=== PATIENT | male | born 1990 | race African-American/Black ===

== ENCOUNTER 2017-05-22 03:57 | Emergency (ER) | payer SELFPAY ==
[~2017-05-22 03:57] MED LIST: ZOFR4TAB3 PO
[2017-05-22 03:59] VITALS: BP 173/95; PULSE 63; RESP 16; TEMP 97.6; O2SAT 98
[2017-05-22 04:13] VITALS: BP 146/92; PULSE 73; RESP 18; O2SAT 99
[2017-05-22] MEDS ORDERED: SODIUM CHLORIDE 0.9% FLUSH 10 ML FLUSH IV FLUSH PRN (04:15)
[2017-05-22] MEDS ORDERED: SODIUM CHLOR 0.9% 1000 ML INJ 1,000 ML IV SCH (04:15)
[2017-05-22] MEDS ORDERED: MORPHINE SULFATE 4 MG/ML INJ IV PUSH ONE ×2 (04:15→05:30)
[2017-05-22] MEDS ORDERED: ONDANSETRON HCL 4 MG/2 ML VIAL IVP ONE (04:15)
[2017-05-22] MEDS ORDERED: KETOROLAC TROMETHAMINE 30 MG/ML (IVP) VIAL IVP ONE (04:15)
[2017-05-22 04:20] VITALS: RESP 16; O2SAT 99
--- NOTE | 2017-05-22 04:22 | PD ---
HPI Chief Complaint: Abdominal Pain Time Seen by Provider: 04:11 Travel History International Travel<30 days: No Contact w/Intl Traveler<30days: No Traveled to known affect area: No History of Present Illness HPI The patient is a 27-year-old Suzie male who presents to the emergency department for abdominal pain. The patient states he was sleeping earlier tonight approximately 2:30 AM when he was awakened by severe abdominal pain. The abdominal pain is located in the upper aspect of his abdomen bilateral, sharp, crampy, nonradiating, and not associated with any nausea, vomiting, or diarrhea. The patient tried to induce vomiting at home to improve his symptoms , however, he was unable to vomit. The patient's last bowel movement was yesterday, normal. The patient states he had surgery to remove kidney stones from both kidneys at age 9 months, but denies any subsequent abdominal surgeries. He denies any known history of nephrolithiasis. He denies any dysuria, frequency, or urgency. He denies any current fever, chills, or sweats. Symptoms are moderate without any alleviating or exacerbating factors. PFSH Past Medical History Cardiovascular Problems: Yes (MURMUR) Past Surgical History Genitourinary Surgery: Yes (kidney surgery age 9 months.) Social History Alcohol Use: Yes (gallon of gin every 2-3 weeks) Tobacco Use: Yes (1/2 ppd) Substance Use: Yes (marijuana) Allergies-Medications (Allergen,Severity, Reaction): Coded Allergies: No Known Allergies (Verified , 05/22/17) Reported Meds & Prescriptions Reported Meds & Active Scripts Active No Active Prescriptions or Reported Medications Review of Systems Except as stated in HPI: all other systems reviewed are Neg General / Constitutional: No: Fever, Chills Cardiovascular: No: Chest Pain or Discomfort Respiratory: No: Shortness of Breath Gastrointestinal: Positive: Abdominal Pain, No: Nausea, Vomiting, Diarrhea Genitourinary: No: Urgency, Frequency, Dysuria, Hematuria Physical Exam Narrative GENERAL: Awake, alert, nontoxic-appearing 27-year-old male who appears his stated age and is in no acute respiratory distress. He does appear mild discomfort. SKIN: Focused skin assessment warm/dry. HEAD: Atraumatic. Normocephalic. EYES: Pupils equal and round. No scleral icterus. No injection or drainage. ENT: No nasal bleeding or discharge. Mucous membranes pink and moist. NECK: Trachea midline. No JVD. CARDIOVASCULAR: Regular rate and rhythm. No murmur appreciated. RESPIRATORY: No accessory muscle use. Clear to auscultation. Breath sounds equal bilaterally. GASTROINTESTINAL: Abdomen soft, well-healed scars in the flanks bilaterally that are slightly diagonal. Tenderness noted in the left and right upper quadrant. Mild guarding but no rigidity. Back: No CVA tenderness. MUSCULOSKELETAL: No obvious deformities. No clubbing. No cyanosis. No edema. NEUROLOGICAL: Awake and alert. No obvious cranial nerve deficits. Motor grossly within normal limits. Normal speech. PSYCHIATRIC: Appropriate mood and affect; insight and judgment normal. Data Data Last Documented VS Vital Signs Date Time Temp Pulse Resp B/P Pulse Ox O2 Delivery O2 Flow Rate FiO2 05/22/17 04:20 16 99 Room Air 05/22/17 04:13 73 146/92 05/22/17 03:59 97.6 Orders Complete Blood Count With Diff (05/22/17 04:15) Comprehensive Metabolic Panel (05/22/17 04:15) Lipase (05/22/17 04:15) Urinalysis - C+S If Indicated (05/22/17 04:15) Ct Abd/Pel W/O Iv Contrast (05/22/17 04:15) Iv Access Insert/Monitor (05/22/17 04:15) Ecg Monitoring (05/22/17 04:15) Oximetry (05/22/17 04:15) Morphine Inj (Morphine Inj) (05/22/17 04:15) Ondansetron Inj (Zofran Inj) (05/22/17 04:15) Sodium Chlor 0.9% 1000 Ml Inj (Ns 1000 M (05/22/17 04:15) Sodium Chloride 0.9% Flush (Ns Flush) (05/22/17 04:15) Ketorolac Inj (Toradol Inj) (05/22/17 04:15) Morphine Inj (Morphine Inj) (05/22/17 05:30) Labs Laboratory Tests Test 05/22/17 05/22/17 04:10 04:25 Urine Color YELLOW Urine Turbidity HAZY Urine pH 6.5 Urine Specific [place] 1.018 Urine Protein NEG mg/dL Urine Glucose (UA) NEG mg/dL Urine Ketones NEG mg/dL Urine Occult Blood NEG Urine Nitrite NEG Urine Bilirubin NEG Urine Urobilinogen LESS THAN 2.0 MG/DL Urine Leukocyte Esterase NEG Urine RBC LESS THAN 1 /hpf Urine WBC 2 /hpf Urine Amorphous Sediment RARE Urine Mucus FEW /lpf Microscopic Urinalysis Comment CULT NOT INDICATED White Blood Count 7.6 TH/MM3 Red Blood Count 5.09 MIL/MM3 Hemoglobin 15.2 GM/DL Hematocrit 44.3 % Mean Corpuscular Volume 87.0 FL Mean Corpuscular Hemoglobin 29.9 PG Mean Corpuscular Hemoglobin 34.3 % Concent Red Cell Distribution Width 13.1 % Platelet Count 263 TH/MM3 Mean Platelet Volume 8.0 FL Neutrophils (%) (Auto) 36.3 % Lymphocytes (%) (Auto) 49.9 % Monocytes (%) (Auto) 10.0 % Eosinophils (%) (Auto) 2.8 % Basophils (%) (Auto) 1.0 % Neutrophils # (Auto) 2.8 TH/MM3 Lymphocytes # (Auto) 3.8 TH/MM3 Monocytes # (Auto) 0.8 TH/MM3 Eosinophils # (Auto) 0.2 TH/MM3 Basophils # (Auto) 0.1 TH/MM3 CBC Comment DIFF FINAL Differential Comment Sodium Level 142 MEQ/L Potassium Level 4.0 MEQ/L Chloride Level 106 MEQ/L Carbon Dioxide Level 29.6 MEQ/L Anion Gap 6 MEQ/L Blood Urea Nitrogen 15 MG/DL Creatinine 1.09 MG/DL Estimat Glomerular Filtration 98 ML/MIN Rate Random Glucose 119 MG/DL Calcium Level 9.2 MG/DL Total Bilirubin 0.1 MG/DL Aspartate Amino Transf 16 U/L (AST/SGOT) Alanine Aminotransferase 39 U/L (ALT/SGPT) Alkaline Phosphatase 80 U/L Total Protein 7.8 GM/DL Albumin 3.6 GM/DL Lipase 206 U/L [facility] Medical Decision Making Medical Screen Exam Complete: Yes Emergency Medical Condition: Yes Medical Record Reviewed: Yes Interpretation(s) CT of the abdomen and pelvis is negative for acute findings. Laboratory Tests Test 05/22/17 05/22/17 04:10 04:25 Urine Color YELLOW Urine Turbidity HAZY Urine pH 6.5 Urine Specific [place] 1.018 Urine Protein NEG mg/dL Urine Glucose (UA) NEG mg/dL Urine Ketones NEG mg/dL Urine Occult Blood NEG Urine Nitrite NEG Urine Bilirubin NEG Urine Urobilinogen LESS THAN 2.0 MG/DL Urine Leukocyte Esterase NEG Urine RBC LESS THAN 1 /hpf Urine WBC 2 /hpf Urine Amorphous Sediment RARE Urine Mucus FEW /lpf Microscopic Urinalysis Comment CULT NOT INDICATED White Blood Count 7.6 TH/MM3 Red Blood Count 5.09 MIL/MM3 Hemoglobin 15.2 GM/DL Hematocrit 44.3 % Mean Corpuscular Volume 87.0 FL Mean Corpuscular Hemoglobin 29.9 PG Mean Corpuscular Hemoglobin 34.3 % Concent Red Cell Distribution Width 13.1 % Platelet Count 263 TH/MM3 Mean Platelet Volume 8.0 FL Neutrophils (%) (Auto) 36.3 % Lymphocytes (%) (Auto) 49.9 % Monocytes (%) (Auto) 10.0 % Eosinophils (%) (Auto) 2.8 % Basophils (%) (Auto) 1.0 % Neutrophils # (Auto) 2.8 TH/MM3 Lymphocytes # (Auto) 3.8 TH/MM3 Monocytes # (Auto) 0.8 TH/MM3 Eosinophils # (Auto) 0.2 TH/MM3 Basophils # (Auto) 0.1 TH/MM3 CBC Comment DIFF FINAL Differential Comment Sodium Level 142 MEQ/L Potassium Level 4.0 MEQ/L Chloride Level 106 MEQ/L Carbon Dioxide Level 29.6 MEQ/L Anion Gap 6 MEQ/L Blood Urea Nitrogen 15 MG/DL Creatinine 1.09 MG/DL Estimat Glomerular Filtration 98 ML/MIN Rate Random Glucose 119 MG/DL Calcium Level 9.2 MG/DL Total Bilirubin 0.1 MG/DL Aspartate Amino Transf 16 U/L (AST/SGOT) Alanine Aminotransferase 39 U/L (ALT/SGPT) Alkaline Phosphatase 80 U/L Total Protein 7.8 GM/DL Albumin 3.6 GM/DL Lipase 206 U/L Last Impressions Abdomen/Pelvis CT 05/22/17 0415 Signed Impressions: Service Date/Time: Monday, May 22, 2017 04:32 - CONCLUSION: Negative CT abdomen/pelvis without intravenous and without oral contrast. Fer Baptiste MD Differential Diagnosis Differential diagnosis includes gastritis, peptic ulcer disease, pancreatitis, partial small bowel obstruction, biliary colic, choledocholithiasis, diverticulitis, nephrolithiasis, hydronephrosis. Narrative Course IV was established, labs are drawn and sent, and the patient was placed on cardiac telemetry monitoring and continuous pulse oximetry monitoring. The patient was administered morphine, Toradol, Zofran, and IV fluids. Noncontrast CT of the abdomen and pelvis was ordered. The patient was reevaluated at 4:50 AM, his pain had significantly improved after pain medications were administered. He continued to be monitored in the emergency department. Laboratory evaluation was unremarkable. White count was within normal limits. LFTs and lipase were normal. Creatinine was within normal limits. CT of the abdomen and pelvis was negative. The patient was reevaluated at 5:20 AM, his pain had started to return, therefore, the patient was redosed with morphine 4 mg intravenously and monitored in the emergency department. Diagnosis Primary Impression: Abdominal pain Qualified Code: R10.10 - Pain of upper abdomen Patient Instructions: General Instructions Additional Instructions: Please provide the patient a copy of his CT results and lab results at discharge. Follow-up with her primary physician. Return if symptoms worsen or progress. Clear liquid diet and advance as tolerated. Med/Other Pt SpecificInfo: Prescription(s) given Scripts Hydrocodone-Acetaminophen ([place])5-325 mg Tab1 Tab PO Q6H PRN (PAIN) #12 TAB Ref 0 Prov:Miah Pickard MD 05/22/17 Ondansetron Odt (Zofran Odt)4 Mg Tab4 Mg SL Q6HR PRN (Nausea/Vomiting) #7 TAB Ref 0 Prov:Miah Pickard MD 05/22/17 Disposition: 01 DISCHARGE HOME Condition: Stable Miah Pickard MD May 22, 2017 04:22
[2017-05-22 04:36] LABS: AUTOMATED NEUTROPHIL # 2.8 TH/MM3 (1.8-7.7); BASOPHIL # 0.1 TH/MM3 (0-0.2); EOSINOPHIL # 0.2 TH/MM3 (0-0.4); EOSINOPHIL % 2.8 % (0.0-4.0); HEMATOCRIT 44.3 % (39.0-51.0); HEMO FLAGS DIFF FINAL; LYMPH % 49.9 % (9.0-44.0); LYMPHOCYTE # 3.8 TH/MM3 (1.0-4.8); MEAN CORPUSCULAR HEMOGLOBIN 29.9 PG (27.0-34.0); MEAN CORPUSCULAR HGB CONC 34.3 % (32.0-36.0); NEUT % 36.3 % (16.0-70.0); PLATELET COUNT 263 TH/MM3 (150-450); RED BLOOD COUNT 5.09 MIL/MM3 (4.50-5.90); RED CELL DISTRIBUTION WIDTH 13.1 % (11.6-17.2); WHITE BLOOD COUNT 7.6 TH/MM3 (4.0-11.0)
[2017-05-22 04:50] LABS: ALT (GPT) 39 U/L (12-78); ANION GAP 6 MEQ/L (5-15); AST (GOT) 16 U/L (15-37); BICARBONATE 29.6 MEQ/L (21.0-32.0); BLOOD UREA NITROGEN 15 MG/DL (7-18); CHLORIDE 106 MEQ/L (98-107); GLOMERULAR FILTRATION RATE 98 ML/MIN (>89); SODIUM (NA) 142 MEQ/L (136-145)
[2017-05-22 04:52] LABS: ALKALINE PHOSPHATASE 80 U/L (45-117); TOTAL BILIRUBIN ADULT 0.1 MG/DL (0.2-1.0)
[2017-05-22 04:53] LABS: BLOOD, URINE NEG (NEG); COMMENT (UR) CULT NOT INDICATED; CULTURE IF INDICATED CULT NOT INDICATED; GLUCOSE,URINE NEG (NEG); KETONE, URINE NEG (NEG); MUCUS URINE FEW /lpf (OCC); NITRITE,URINE NEG (NEG); PH, URINE 6.5 (5.0-8.5); URINE COLOR YELLOW (YELLW/STRAW)
--- NOTE | 2017-05-22 05:24 | RADRPT ---
EXAM DATE/TIME: 05/22/2017 04:32 [facility] COMPARISON: No previous studies available for comparison. INDICATIONS : Left upper quadrant abdominal pain. ORAL CONTRAST: No oral contrast ingested. RADIATION DOSE: 12.22 CTDIvol (mGy) MEDICAL HISTORY : None SURGICAL HISTORY : Kidney surgery at 9 months old. ENCOUNTER: Initial ACUITY: 1 day PAIN SCALE: 10/10 LOCATION: Left upper quadrant abdomen TECHNIQUE: Volumetric scanning of the abdomen and pelvis was performed. Using automated exposure control and ad justment of the mA and/or kV according to patient size, radiation dose was kept as low as reasonably achievable to obtain optimal diagnostic quality images. DICOM format image data is available electro nically for review and comparison. FINDINGS: LOWER LUNGS: The visualized lower lungs are clear. LIVER: Homogeneous density without lesion for noncontrast technique. There is no dilation of the biliary tr ee. No calcified gallstones. SPLEEN: Normal size without lesion. PANCREAS: Within normal limits. KIDNEYS: The right kidney is hypertrophied without evidence of stone hydronephrosis. The left kidney measures 9 cm in long axis there is a mildly prominent extrarenal pelvis; the configuration is characteristic of history of prior renal surgery. No calcified stones or hydronephrosis on the left side. ADRENAL GLANDS: Within normal limits. VASCULAR: There is no aortic aneurysm. BOWEL/MESENTERY: Nondilated loops of small or bowel. ABDOMINAL WALL: Within normal limits. RETROPERITONEUM: There is no lymphadenopathy. BLADDER: No wall thickening or mass. REPRODUCTIVE: Within normal limits. INGUINAL: There is no lymphadenopathy or hernia. MUSCULOSKELETAL: Within normal limits for patient age. CONCLUSION: Negative CT abdomen/pelvis without intravenous and without oral contrast. Fer Baptiste MD on May 22, 2017 at 5:19 Board Certified Radiologist. This report was verified electronically.
[2017-05-22] MEDS ORDERED: ZOFR4TAB3 SL (05:45)
[2017-05-22] MEDS ORDERED: NORC5TAB PO (05:45)
== END 2017-05-22 06:32 | disposition home or self-care (01) ==
LOC: NEPC 03:57
DX: R10.10 Upper abdominal pain, unspecified (principal); F17.210 Nicotine dependence, cigarettes, uncomplicated; F10.10 Alcohol abuse, uncomplicated
CPT/HCPCS: 74176; 80053; 81001; 83690; 85025; 96361; 96374; 96375; 99285; J1885; J2270; J2405; J7030

== ENCOUNTER 2018-03-23 01:28 | Emergency (ER) | payer SELFPAY ==
[~2018-03-23] VITALS: Ht 177.8 cm; Wt 105.0 kg
[~2018-03-23 01:28] MED LIST changes: +NORC5TAB PO; -ZOFR4TAB3 PO; +ZOFR4TAB3 SL
[2018-03-23 01:34] VITALS: BP 127/56; PULSE 76; RESP 18; TEMP 98.1; O2SAT 100
[2018-03-23 01:43] VITALS: O2SAT 98
[2018-03-23] MEDS ORDERED: SODIUM CHLORID 0.9% 500 ML INJ 500 ML IV ONE (01:45)
[2018-03-23] MEDS ORDERED: SODIUM CHLORIDE 0.9% FLUSH 10 ML FLUSH IVF PRN (01:45)
--- NOTE | 2018-03-23 01:54 | PD ---
HPI Chief Complaint: Chest Pain Time Seen by Provider: 01:32 Travel History International Travel<30 days: No Contact w/Intl Traveler<30days: No Traveled to known affect area: No History of Present Illness HPI The patient is a 28-year-old -[place] male who presents to emergency department via EMS for chest pain. The patient states he was in the middle of a conversation on a phone when he developed chest pain. The chest pain was substernal, pressure related, nonradiating, states with nausea, vomiting, and mild shortness of breath. The patient has a history of similar symptoms in the past but never followed up with a primary physician. The patient was administered aspirin and nitroglycerin prior to arrival and his pain improved. The patient denies any history of hypertension, hyperlipidemia, coronary artery disease, diabetes, or previous CA. The patient thinks his father may have had heart disease at an early age but is unsure. The patient does smoke cigarettes occasionally, does use marijuana, and was drinking alcohol earlier tonight when symptoms started. He denies any recent exertional shortness of breath. The chest pain was described as sharp, stabbing, and lasting approximately 5 minutes. The patient denies any recent travel, hospitalizations, surgery, or history of pulmonary embolism/DVT. PFSH Past Medical History Cardiovascular Problems: Yes (MURMUR) Immunizations Current: Yes Tetanus Vaccination: Unknown Influenza Vaccination: No Past Surgical History Genitourinary Surgery: Yes (kidney surgery age 9 months.) Social History Alcohol Use: Yes (gallon of gin every 2-3 weeks) Tobacco Use: Yes (1/2 ppd) Substance Use: Yes (marijuana) Allergies-Medications (Allergen,Severity, Reaction): Coded Allergies: No Known Allergies (Verified Adverse Reaction, Unknown, 03/23/18) Reported Meds & Prescriptions Reported Meds & Active Scripts Active No Active Prescriptions or Reported Medications Review of Systems Except as stated in HPI: all other systems reviewed are Neg General / Constitutional: No: Fever HENT: No: Lightheadedness Cardiovascular: Positive: Chest Pain or Discomfort, Diaphoresis, No: Dyspnea on exertion Respiratory: Positive: Shortness of Breath Gastrointestinal: Positive: Nausea, Vomiting Musculoskeletal: No: Weakness Neurologic: No: Dizziness Psychiatric: Positive: Substance Abuse (Marijuana use, denies cocaine or methamphetamines) Physical Exam Narrative GENERAL: Awake, alert, pleasant 28-year-old male who appears his stated age and is in no acute respiratory distress. SKIN: Focused skin assessment warm/dry. HEAD: Atraumatic. Normocephalic. EYES: No injection or drainage. ENT: No nasal bleeding or discharge. Mucous membranes pink and moist. NECK: Trachea midline. No JVD. CARDIOVASCULAR: Regular rate and rhythm. No murmur appreciated. RESPIRATORY: No accessory muscle use. Clear to auscultation. Breath sounds equal bilaterally. GASTROINTESTINAL: Abdomen soft, non-tender, nondistended. No epigastric tenderness. No guarding rigidity. MUSCULOSKELETAL: No obvious deformities. No clubbing. No cyanosis. No edema. NEUROLOGICAL: Awake and alert. No obvious cranial nerve deficits. Motor grossly within normal limits. Normal speech. PSYCHIATRIC: Appropriate mood and affect; insight and judgment normal. Data Data Last Documented VS Vital Signs Date Time Temp Pulse Resp B/P (MAP) Pulse Ox O2 Delivery O2 Flow Rate FiO2 03/23/18 05:16 63 18 135/78 (97) 98 Room Air 03/23/18 01:34 98.1 Orders Orders Electrocardiogram (03/23/18 01:42) Ckmb (Isoenzyme) Profile (03/23/18 01:42) Complete Blood Count With Diff (03/23/18 01:42) Comprehensive Metabolic Panel (03/23/18 01:42) Magnesium (Mg) (03/23/18 01:42) Prothrombin Time / Inr (Pt) (03/23/18 01:42) Act Partial Throm Time (Ptt) (03/23/18 01:42) Troponin I (03/23/18 01:42) Lipase (03/23/18 01:42) Ecg Monitoring (03/23/18 01:42) Bilateral Bp Monitoring (03/23/18 01:42) Iv Access Insert/Monitor (03/23/18 01:42) Oximetry (03/23/18 01:42) Oxygen Administration (03/23/18 01:42) Sodium Chloride 0.9% Flush (Ns Flush) (03/23/18 01:45) Sodium Chlorid 0.9% 500 Ml Inj (Ns 500 M (03/23/18 01:45) Chest, Pa & Lat (03/23/18 01:42) Alcohol (Ethanol) (03/23/18 01:42) CKMB (03/23/18 01:48) CKMB% (03/23/18 01:48) Troponin I (03/23/18 04:38) Labs Laboratory Tests Test 03/23/18 01:48 03/23/18 05:14 White Blood Count 6.7 TH/MM3 Red Blood Count 4.89 MIL/MM3 Hemoglobin 14.6 GM/DL Hematocrit 43.1 % Mean Corpuscular Volume 88.2 FL Mean Corpuscular Hemoglobin 29.9 PG Mean Corpuscular Hemoglobin Concent 34.0 % Red Cell Distribution Width 13.5 % Platelet Count 256 TH/MM3 Mean Platelet Volume 8.0 FL Neutrophils (%) (Auto) 44.7 % Lymphocytes (%) (Auto) 42.1 % Monocytes (%) (Auto) 10.4 % Eosinophils (%) (Auto) 2.0 % Basophils (%) (Auto) 0.8 % Neutrophils # (Auto) 3.0 TH/MM3 Lymphocytes # (Auto) 2.8 TH/MM3 Monocytes # (Auto) 0.7 TH/MM3 Eosinophils # (Auto) 0.1 TH/MM3 Basophils # (Auto) 0.1 TH/MM3 CBC Comment DIFF FINAL Differential Comment Prothrombin Time 10.3 SEC Prothromb Time International Ratio 1.0 RATIO Activated Partial Thromboplast Time 22.8 SEC Blood Urea Nitrogen 18 MG/DL Creatinine 1.03 MG/DL Random Glucose 95 MG/DL Total Protein 7.7 GM/DL Albumin 3.8 GM/DL Calcium Level 8.5 MG/DL Magnesium Level 2.0 MG/DL Alkaline Phosphatase 64 U/L Aspartate Amino Transf (AST/SGOT) 17 U/L Alanine Aminotransferase (ALT/SGPT) 31 U/L Total Bilirubin 0.3 MG/DL Sodium Level 142 MEQ/L Potassium Level 3.4 MEQ/L Chloride Level 107 MEQ/L Carbon Dioxide Level 24.5 MEQ/L Anion Gap 11 MEQ/L Estimat Glomerular Filtration Rate 104 ML/MIN Total Creatine Kinase 466 U/L Creatine Kinase MB 3.6 NG/ML Creatine Kinase MB % 0.8 % Troponin I LESS THAN 0.02 NG/ML LESS THAN 0.02 NG/ML Lipase 80 U/L Ethyl Alcohol Level 84 MG/DL MDM Medical Decision Making Medical Screen Exam Complete: Yes Emergency Medical Condition: Yes Medical Record Reviewed: Yes Interpretation(s) EKG reveals sinus rhythm with sinus arrhythmia. Borderline first-degree block with AL interval 212 ms. Mild J-point elevation V2 and V3, probable early repolarization. Last Impressions Chest X-Ray 03/23/18 0142 Signed Impressions: Service Date/Time: Friday, March 23, 2018 01:51 - CONCLUSION: No acute cardiopulmonary disease. Fer Baptiste MD Laboratory Tests Test 03/23/18 01:48 03/23/18 05:14 White Blood Count 6.7 TH/MM3 Red Blood Count 4.89 MIL/MM3 Hemoglobin 14.6 GM/DL Hematocrit 43.1 % Mean Corpuscular Volume 88.2 FL Mean Corpuscular Hemoglobin 29.9 PG Mean Corpuscular Hemoglobin Concent 34.0 % Red Cell Distribution Width 13.5 % Platelet Count 256 TH/MM3 Mean Platelet Volume 8.0 FL Neutrophils (%) (Auto) 44.7 % Lymphocytes (%) (Auto) 42.1 % Monocytes (%) (Auto) 10.4 % Eosinophils (%) (Auto) 2.0 % Basophils (%) (Auto) 0.8 % Neutrophils # (Auto) 3.0 TH/MM3 Lymphocytes # (Auto) 2.8 TH/MM3 Monocytes # (Auto) 0.7 TH/MM3 Eosinophils # (Auto) 0.1 TH/MM3 Basophils # (Auto) 0.1 TH/MM3 CBC Comment DIFF FINAL Differential Comment Prothrombin Time 10.3 SEC Prothromb Time International Ratio 1.0 RATIO Activated Partial Thromboplast Time 22.8 SEC Blood Urea Nitrogen 18 MG/DL Creatinine 1.03 MG/DL Random Glucose 95 MG/DL Total Protein 7.7 GM/DL Albumin 3.8 GM/DL Calcium Level 8.5 MG/DL Magnesium Level 2.0 MG/DL Alkaline Phosphatase 64 U/L Aspartate Amino Transf (AST/SGOT) 17 U/L Alanine Aminotransferase (ALT/SGPT) 31 U/L Total Bilirubin 0.3 MG/DL Sodium Level 142 MEQ/L Potassium Level 3.4 MEQ/L Chloride Level 107 MEQ/L Carbon Dioxide Level 24.5 MEQ/L Anion Gap 11 MEQ/L Estimat Glomerular Filtration Rate 104 ML/MIN Total Creatine Kinase 466 U/L Creatine Kinase MB 3.6 NG/ML Creatine Kinase MB % 0.8 % Troponin I LESS THAN 0.02 NG/ML LESS THAN 0.02 NG/ML Lipase 80 U/L Ethyl Alcohol Level 84 MG/DL Differential Diagnosis Differential diagnosis includes acute coronary syndrome, pulmonary embolism, GERD, esophageal spasm, pneumonitis, pneumothorax, gastritis, pancreatitis, peptic ulcer disease. Narrative Course IV was established, labs are drawn and sent, and the patient was placed on cardiac telemetry monitoring and continuous pulse oximetry monitoring. EKG was ordered and interpreted. The patient received aspirin and nitroglycerin prior to arrival, was asymptomatic prior to arrival. Chest x-ray was obtained. The patient's chest x-ray is unremarkable. Initial troponin was less than 0.02. The patient was reassessed, his symptoms had improved. A second troponin was sent at the 3 hour level, second troponin was less than 0.02. The patient is stable for outpatient follow-up. He is advised to return if symptoms worsen or progress. Diagnosis Primary Impression: Atypical chest pain Patient Instructions: General Instructions Additional Instructions: Please provide the patient a copy of his labs and chest x-ray results at discharge. Follow-up with a primary physician. Return if symptoms worsen or progress. Med/Other Pt SpecificInfo: No Change to Meds Scripts No Active Prescriptions or Reported Meds Disposition: 01 DISCHARGE HOME Condition: Stable Miah Pickard MD Mar 23, 2018 01:54
[2018-03-23 02:06] LABS: BASOPHIL # 0.1 TH/MM3 (0-0.2); BASOPHIL % 0.8 % (0.0-2.0); EOSINOPHIL # 0.1 TH/MM3 (0-0.4); HEMATOCRIT 43.1 % (39.0-51.0); HEMOGLOBIN 14.6 GM/DL (13.0-17.0); LYMPH % 42.1 % (9.0-44.0); LYMPHOCYTE # 2.8 TH/MM3 (1.0-4.8); MEAN CELL VOLUME 88.2 FL (80.0-100.0); MEAN CORPUSCULAR HEMOGLOBIN 29.9 PG (27.0-34.0); MONO % 10.4 % (0.0-8.0); MONOCYTE # 0.7 TH/MM3 (0-0.9); NEUT % 44.7 % (16.0-70.0); PLATELET COUNT 256 TH/MM3 (150-450); RED BLOOD COUNT 4.89 MIL/MM3 (4.50-5.90); RED CELL DISTRIBUTION WIDTH 13.5 % (11.6-17.2); WHITE BLOOD COUNT 6.7 TH/MM3 (4.0-11.0)
--- NOTE | 2018-03-23 02:07 | RADRPT ---
EXAM DATE/TIME: 03/23/2018 01:51 [facility] COMPARISON: No previous studies available for comparison. INDICATIONS : Chest pain MEDICAL HISTORY : None. SURGICAL HISTORY : Bilateral kidney. ENCOUNTER: Initial ACUITY: 1 day PAIN SCORE: 12/05 LOCATION: Bilateral chest FINDINGS: PA and lateral views of the chest demonstrate the lungs to be symmetrically aerated without evidence of mass, infiltrate or effusion. The cardiomediastinal contours are unremarkable. Osseous structure s are intact. CONCLUSION: No acute cardiopulmonary disease. Fer Baptiste MD on March 23, 2018 at 2:04 Board Certified Radiologist. This report was verified electronically.
[2018-03-23 02:16] LABS: PROTHROMBIN TIME - PATIENT 10.3 SEC (9.8-11.6)
[2018-03-23 02:27] LABS: ALBUMIN 3.8 GM/DL (3.4-5.0); ALT (GPT) 31 U/L (12-78); AST (GOT) 17 U/L (15-37); BICARBONATE 24.5 MEQ/L (21.0-32.0); BLOOD UREA NITROGEN 18 MG/DL (7-18); CALCIUM 8.5 MG/DL (8.5-10.1); CHLORIDE 107 MEQ/L (98-107); CREATININE 1.03 MG/DL (0.60-1.30); GLOMERULAR FILTRATION RATE 104 ML/MIN (>89); GLUCOSE,RANDOM 95 MG/DL (74-106); SODIUM (NA) 142 MEQ/L (136-145)
[2018-03-23 02:30] LABS: ALKALINE PHOSPHATASE 64 U/L (45-117); TOTAL BILIRUBIN ADULT 0.3 MG/DL (0.2-1.0); TOTAL PROTEIN 7.7 GM/DL (6.4-8.2); TROPONIN I LESS THAN 0.02 NG/ML (0.02-0.05)
[2018-03-23 05:16] VITALS: BP 135/78; PULSE 63; RESP 18; O2SAT 98
--- NOTE | 2018-03-23 10:21 | EKG ---
Date Performed: 03/23/2018 Time Performed: 01:40:09 PTAGE: 28 years EKG: Sinus rhythm WITH SINUS ARRHYTHMIA ST ELEVATION, PROBABLY EARLY REPOLARIZATION ABNORMAL ECG NO PREVIOUS TRACING DOCTOR: Earl Joy Interpretating Date/Time 03/23/2018 10:19:27
== END 2018-03-23 05:55 | disposition home or self-care (01) ==
LOC: NEPC 01:28
DX: R07.89 Other chest pain (principal); R06.02 Shortness of breath; R11.2 Nausea with vomiting, unspecified; F12.90 Cannabis use, unspecified, uncomplicated; F17.210 Nicotine dependence, cigarettes, uncomplicated
CPT/HCPCS: 71046; 80053; 80307; 82550; 82552; 83690; 83735; 84484; 85025; 85610; 85730; 93005; 96360; 99285; J7040